=== PATIENT | female | born 1980 | race African-American/Black ===

== ENCOUNTER 2017-09-19 14:06 | Emergency (ER) | payer OTHER ==
[2017-09-19 14:29] VITALS: BP 111/64; PULSE 99; O2SAT 96
[2017-09-19] MEDS ORDERED: Phenergan 25 MG INJ IM ONE (14:36)
[2017-09-19] MEDS ORDERED: NORCO 5/325 MG PO ONE (14:36)
[2017-09-19] MEDS ORDERED: NORCO 5/325 MG ONE (14:50)
[2017-09-19] MEDS ORDERED: Phenergan 25 MG INJ ONE (14:50)
[2017-09-19 14:56] LABS: BASOPHIL % 0.2 % (0.0-0.4); Eosinophil % 0.7 % (0.00-5.0); Granulocytes % 73.6 % (36.0-66.0); Mean Cell Volume 89.8 fl (78-100); Mean Corpuscular Hemoglobin 29.2 pg (26-32); Mean Platelet Volume 9.5 fl (6-9.5); Monocytes % 7.5 % (0.0-12.0); Platelet Count 256 K/mm3 (150-450); Red Blood Count 3.42 M/mm3 (4.1-5.4); Red Cell Distribution Width 14.1 % (11.5-14.0); White Blood Count 9.1 K/mm3 (4.0-10.5)
[2017-09-19 15:00] LABS: ADD URINE CULTURE? NO (NO); Bilirubin NEGATIVE (NEGATIVE); Blood NEGATIVE Ery/ul (0-5); COMPLETE URINE MICROSCOPIC? NO; Collection Type VOID; Glucose 1000 mg/dL (NEGATIVE); Leukocyte Esterase NEGATIVE (NEGATIVE)
--- NOTE | 2017-09-19 15:00 | ERPHSYRPT ---
- History of Present Illness Time Seen by Provider: 09/19/17 14:26 Source: patient Patient Subjective Stated Complaint: pt states she has had a headache for the past few days. pt states she is 32 weeks . Triage Nursing Assessment: pt pink, warm, dry. pt pupils perrl. pt ambulated into ER without difficulty. Physician History: CC: headache Hx; 37 y/o patient of Dr Nadia MCCLELLAN at [facility]. She lives in [place] and was in [facility] her fiance for his doctor appt. She has 2-3 day hx of headache, similar to prior migraines. It is worse. She has chronic low back pain from which is unchanged. She states no signs of labor, no vaginal bleeding, no CTX. She has EDC 10-29-17. G?P7 with 7 prior C-sections. No swelling. No abd pain. No fever or chills. Normal urination. Headaches have occurred several times this . ILL: Hep C, IDDM, Migraines, Schizophrenia, sickle cell ALL: Flexeril, Tramadol, Latex Meds: Levemir, humalog, Adderall, xanax, phenergan, norco, nexium Timing/Duration: day(s) (2-3) Allergies/Adverse Reactions: cyclobenzaprine HCl [From Flexeril] Allergy (Verified 10/04/14 03:15) tramadol Adverse Reaction (Verified 10/04/14 03:15) Home Medications: Insulin Aspart [NovoLOG Insulin] 0 units SQ TIDWM 05/07/14 [History] Alprazolam 1 mg [Xanax 1 mg] 1 mg PO TID 09/03/14 [History] Dextroamphetamine/Amphetamine [Adderall 30 mg Tablet] 30 mg PO BID 09/03/14 [ History] Hydrocodone Bit/Acetaminophen [Hydrocodon-Acetaminoph 7.5-325] 1 each PO Q6H PRN PRN 09/19/17 [History] Insulin Detemir [Levemir] 0 unit SQ UD 09/19/17 [History] Hx Tetanus, Diphtheria Vaccination/Date Given: Yes (up to date) Hx Influenza Vaccination/Date Given: Yes Hx Pneumococcal Vaccination/Date Given: No Immunizations Up to Date: Yes - Review of Systems Constitutional: No Fever, No Chills Eyes: No Symptoms, Vision Changes (from DM) Ears, Nose, & Throat: No Symptoms Respiratory: No Cough, No Dyspnea Cardiac: No Chest Pain Abdominal/Gastrointestinal: No Abdominal Pain, No Nausea, No Vomiting, No Diarrhea Genitourinary Symptoms: , No Dysuria, No Vaginal Bleeding, No Vaginal Discharge Musculoskeletal: Back Pain (chronic) Skin: No Rash Neurological: Headache, No Focal Weakness, No Parasthesia All Other Systems: Reviewed and Negative - Past Medical History Pertinent Past Medical History: Yes Neurological History: Migraines Cardiac History: No Pertinent History Endocrine Medical History: Diabetes Type II Psycho-Social History: Attention Deficit Disorder, Other Other Medical History: sickel cell - Past Surgical History Past Surgical History: Yes Female Surgical History: Section Other Surgical History: anal surgery. breast reduction - Social History Smoking Status: Former smoker Exposure to second hand smoke: Yes Drug Use: none Patient Lives Alone: No - Female History Hx Last Menstrual Period: dec 2016 Expected Date of Delivery: 10/29/17 - Nursing Vital Signs Nursing Vital Signs: Initial Vital Signs Temperature 98.2 F 09/19/17 14:26 Pulse Rate 99 H 09/19/17 14:26 Respiratory Rate 18 09/19/17 14:26 Blood Pressure 111/64 09/19/17 14:26 O2 Sat by Pulse Oximetry 96 09/19/17 14:26 Pain Scale Pain Intensity [Head] 8 Pain Intensity 8 - Physical Exam General Appearance: alert Eye Exam: PERRL/EOMI Ears, Nose, Throat Exam: normal ENT inspection, moist mucous membranes Neck Exam: normal inspection, non-tender, supple Respiratory Exam: normal breath sounds, lungs clear Cardiovascular Exam: regular rate/rhythm Gastrointestinal/Abdomen Exam: soft, other (gravid), No tenderness, No distention Back Exam: normal inspection Extremity Exam: normal inspection, normal range of motion, No pedal edema Neurologic Exam: alert, oriented x 3, cooperative, baler II-XII nml as tested, sensation nml, other (no clonus), No motor deficits Skin Exam: warm, dry, No rash SpO2 Interpretation: normal SpO2: 96 Oxygen Delivery: Room Air - Course Nursing assessment & vital signs reviewed: Yes Ordered Tests: Active Orders 24 hr Category Date Time Status Clean Catch Urine Specimen STAT Care 09/19/17 14:35 Active Heart Tones-ED STAT Care 09/19/17 14:36 Active CBC W DIFF Stat Lab 09/19/17 14:45 Completed CMP Stat Lab 09/19/17 14:45 Completed UA W/RFX UR CULTURE Stat Lab 09/19/17 14:45 Completed Medication Summary Discontinued Medications Generic Name Dose Route Start Last Admin Trade Name Lelo PRN Reason Stop Dose Admin Hydrocodone Bitart/Acetaminophen 1 tab 09/19/17 14:36 09/19/17 14:52 Meadow 5/325 Mg PO 09/19/17 14:37 1 tab STAT ONE Administration Hydrocodone Bitart/Acetaminophen Confirm 09/19/17 14:50 [place]ow 5/325 Mg Administered 09/19/17 14:51 Dose 1 tab .ROUTE .STK-MED ONE Promethazine HCl 25 mg 09/19/17 14:36 09/19/17 14:53 Phenergan 25 Mg Inj IM 09/19/17 14:37 25 mg STAT ONE Administration Promethazine HCl Confirm 09/19/17 14:50 Phenergan 25 Mg Inj Administered 09/19/17 14:51 Dose 25 mg .ROUTE .STK-MED ONE Lab/Rad Data: Laboratory Result Diagrams 09/19/17 14:45 09/19/17 14:45 Laboratory Results 09/19/17 09/19/17 09/19/17 Range/Units 14:45 14:45 14:45 WBC 9.1 (4.0-10.5) K/mm3 RBC 3.42 L (4.1-5.4) M/mm3 Hgb 10.0 L (12.0-16.0) gm/dl Hct 30.7 L (35-47) % MCV 89.8 (78-100) fl MCH 29.2 (26-32) pg MCHC 32.6 (32-36) g/dl RDW 14.1 H (11.5-14.0) % Plt Count 256 (150-450) K/mm3 MPV 9.5 (6-9.5) fl Gran % 73.6 H (36.0-66.0) % Lymphocytes % 18.0 L (24.0-44.0) % Monocytes % 7.5 (0.0-12.0) % Eosinophils % 0.7 (0.00-5.0) % Basophils % 0.2 (0.0-0.4) % Basophils # 0.02 (0-0.4) Sodium 136 (136-145) mEq/L Potassium 4.1 (3.5-5.1) mEq/L Chloride 105 (98-107) mEq/L Carbon Dioxide 22.5 (21-32) mEq/L Anion Gap 12.2 (5-15) MEQ/L BUN 8 L (9-20) mg/dL Creatinine 0.67 (0.55-1.30) mg/dl Estimated GFR > 60 ML/MIN Glucose 163 H (70-110) MG/DL Calcium 7.9 L (8.5-10.1) mg/dL Total Bilirubin 0.10 L (0.2-1.0) mg/dL AST 19 (15-37) U/L ALT 21 (12-78) U/L Alkaline Phosphatase 56 (46-116) U/L Serum Total Protein 7.1 (6.4-8.2) gm/dL Albumin 2.5 L (3.4-5.0) g/dL Ur Collection Type VOID Urine Color YELLOW (YELLOW) Urine Appearance CLEAR (CLEAR) Urine pH 6.0 (5-6) Ur Specific [place] 1.015 (1.005-1.025) Urine Protein NEGATIVE (Negative) Urine Ketones NEGATIVE (NEGATIVE) Urine Blood NEGATIVE (0-5) [place]/ul Urine Nitrite NEGATIVE (NEGATIVE) Urine Bilirubin NEGATIVE (NEGATIVE) Urine Urobilinogen NORMAL (0-1) mg/dL Ur Leukocyte Esterase NEGATIVE (NEGATIVE) Urine Culture Reflexed NO (NO) Urine Glucose 1000 (NEGATIVE) mg/dL Specimen Received 09/19/17 1450 - Progress Progress Note: 09/19/17 15:02 Will check CMP, CBC, UA. Phenergan and norco given for her headache. T's wnl. 09/19/17 15:12 Nurse signed pt out AMA because pt had to leave due to her ride back to [place]. She did not wait on labs. She was medicated. Counseled pt/family regarding: lab results, diagnosis, need for follow-up - Departure Time of Disposition: 15:13 Departure Disposition: AMA Clinical Impression: Headache, with 34 completed weeks gestation Condition: Stable Critical Care Time: No Referrals: DOCTOR,NO FAMILY [Primary Care Provider] -
[2017-09-19 15:09] LABS: ALBUMIN 2.5 g/dL (3.4-5.0); ALKALINE PHOSPHATASE 56 U/L (46-116); ANION GAP 12.2 MEQ/L (5-15); BLOOD UREA NITROGEN 8 mg/dL (9-20); CHLORIDE 105 mEq/L (98-107); Carbon Dioxide 22.5 mEq/L (21-32); Glucose 163 MG/DL (70-110); Potassium 4.1 mEq/L (3.5-5.1); SGOT/AST 19 U/L (15-37); SGPT/ALT 21 U/L (12-78); SODIUM 136 mEq/L (136-145); Total Protein 7.1 gm/dL (6.4-8.2)
== END 2017-09-19 15:13 | disposition left against medical advice (07) ==
LOC: ED 14:06
DX: R51 Headache (principal); Z3A.34 34 weeks gestation of pregnancy; E11.9 Type 2 diabetes mellitus without complications; Z79.891 Long term (current) use of opiate analgesic; Z79.899 Other long term (current) drug therapy; Z79.4 Long term (current) use of insulin
CPT/HCPCS: 36415; 80053; 81002; 85025; 96372; 99284; J2550; A9270-GY